=== PATIENT | female | born 1965 | race Caucasian/White ===

== ENCOUNTER 2017-10-01 17:29 | Emergency (ER) | payer SELFPAY ==
[2017-10-01 17:59] LABS: #Basophils 0.1 thou/uL (0.0-0.2); #Monocytes 0.5 thou/uL (0.11-0.59); %Basophils 0.9 % (0.0-1.0); %Lymphocytes 20.7 % (21.0-51.0); %Monocytes 5.5 % (0.0-10.0); %Neutrophils 62.9 % (42.0-75.0); Mean Corpuscular HGB CONC 32.9 g/dL (32.0-36.0); Mean Corpuscular Hemoglobin 28.7 pg (27.0-31.0); Mean Corpuscular Volume 87.1 fL (78.0-98.0); Mean Platelet Volume 7.6 fL (7.4-10.4); Platelet Count 267 thou/uL (130-400); RBC Distribution Width 12.4 % (11.5-14.5); White Blood Cell (WBC) Count 9.6 thou/uL (4.8-10.8)
[2017-10-01 18:26] LABS: ALT (SGPT) 12 U/L (8-55); AST (SGOT) 13 U/L (5-34); Albumin 3.8 g/dL (3.5-5.0); Alkaline Phosphatase 111 U/L (40-150); Anion Gap 12 mmol/L (10-20); BUN (Urea Nitrogen) 17 mg/dL (9.8-20.1); Bilirubin, Total 0.5 mg/dL (0.2-1.2); CK (CPK) 36 U/L (29-168); Calc. Creatinine Clearance 0 mL/min (70-130); Calcium 9.8 mg/dL (7.8-10.44); Carbon Dioxide 24 mmol/L (22-29); Chloride 108 mmol/L (98-107); Estimated GFR-MDRD 76; Globulin 3.4 g/dL (2.4-3.5); Glucose 97 mg/dL (70-105); Potassium 4.1 mmol/L (3.5-5.1); Protein, Total 7.2 g/dL (6.0-8.3); Sodium 140 mmol/L (136-145)
[2017-10-01 18:29] LABS: CKMB 1.6 ng/mL (0-6.6); Troponin I 0.032 ng/mL (< 0.028)
--- NOTE | 2017-10-01 18:33 | RAD ---
PORTABLE CHEST 10/01/17 PROVIDED CLINICAL HISTORY: Chest pain. FINDINGS: The cardiac and mediastinal silhouette is within normal limits. Median sternotomy changes are seen. N o focal consolidation, pleural fluid or pneumothorax apparent. IMPRESSION: No evidence for an acute cardiopulmonary process. POS: OFF
--- NOTE | 2017-10-01 19:42 | CT ---
CT THORAX WITH CONTRAST: 10/01/17 HISTORY: 52-year-old female with chest pain and "anterior superior chest wall mass." TECHNIQUE: IV iodinated contrast media: 100 mL Isovue 370. COMPARISON: None. FINDINGS: There are sternotomy wires around a nonhealed sagittal sternotomy lucency. Edema in the adjacent supe rficial soft tissues, and tiny amount of gas in the superficial soft tissues adjacent to its inferior portion, indicate that the surgery was recent. Surgical clips are present in the anterior mediastinu m. There is a vertically elongated, small, thin retrosternal anterior mediastinal fluid collection ce ntered to the left of midline, measuring approximately 1 cm AP x 1 cm transverse, and many centimeter s craniocaudal, consistent with a small postoperative hematoma. There is a very small pericardial eff usion. There is a small left pleural effusion which occupies approximately 10% volume of the left tho racic cavity. No thoracic aortic aneurysm or dissection. No cardiomegaly. Multiple mildly enlarged me diastinal lymph nodes. No hilar mass or lymphadenopathy. No pleural effusion on the right side. No co nsolidation, pulmonary edema, or pneumothorax. No mass is identified in the chest wall. No destructiv e osseous lesion involving the anterior ribs. IMPRESSION: 1. Recently status post coronary artery bypass graft surgery, with associated recent postoperati ve changes. 2. This includes a thin retrosternal fluid collection which is probably an expected postoperativ e hematoma. If symptoms do not improve by next week, a follow up CT of the chest with contrast shoul d be considered. 3. Small left pleural effusion. MARYLU Wilburn POS: ADAL
== END 2017-10-01 19:30 | disposition home or self-care (01) ==
LOC: ERS 17:29
DX: R07.2 Precordial pain (principal); E11.9 Type 2 diabetes mellitus without complications; E78.5 Hyperlipidemia, unspecified; I10 Essential (primary) hypertension; I25.2 Old myocardial infarction; F41.9 Anxiety disorder, unspecified; F32.9 Major depressive disorder, single episode, unspecified; Z87.891 Personal history of nicotine dependence; Z79.899 Other long term (current) drug therapy
CPT/HCPCS: 36415; 71045; 71260; 80053; 82550; 82553; 84484; 85025; 93005